=== PATIENT | male | born 1985 | race Caucasian/White ===

== ENCOUNTER 2017-06-03 14:05 | Emergency (ER) | payer BC ==
[2017-06-03 14:20] VITALS: BP 157/79
--- NOTE | 2017-06-03 14:44 | RAD ---
HISTORY: Facial trauma COMPARISONS: None VIEWS: 3, Shah views of the face, bilateral coned down lateral views of the nasal bones FINDINGS: BONE DENSITY: Normal. BONES: There is no displaced fracture. The orbital rims are intact. JOINTS: There is no arthropathy. ALIGNMENT: There is no dislocation. SOFT TISSUES: Unremarkable. OTHER FINDINGS: The nasal septum is deviated to the right. IMPRESSION: NO ACUTE OSSEOUS INJURY. IF SYMPTOMS PERSIST, RECOMMEND REPEAT IMAGING.
--- NOTE | 2017-06-03 14:49 | UC ---
Epistaxis Nasal HPI - HPI Summary HPI Summary: Pt reports that he was walking by the back of his truck where he keeps a tool box with a bungee cord securing it in place, and the bungee spontaneously released and hit him in th nose and forehead. Pt states that it knocked him down but denies LOC, nausea, vomiting or TORRES. Epistaxis resolved prior to arrival to clinic, denies previous nasal fracture. - History of Current Complaint Chief Complaint: UCGeneralIllness Stated Complaint: NOSE INJURY Time Seen by Provider: 06/03/17 14:21 Hx Obtained From: Patient Onset/Duration: Sudden Onset Severity Initially: Moderate Severity Currently: Mild Pain Intensity: 7 Aggravating Factor(s): Nasal Trauma Associated Signs And Symptoms: Positive: Negative - Allergies/Home Medications Allergies/Adverse Reactions: Allergies Allergy/AdvReac Type Severity Reaction Status Date / Time Adhesive Tape Allergy See Comment Verified 10/03/15 17:14 aspirin Allergy Unknown Verified 06/03/17 14:15 Reaction Details bee venom protein (honey bee) Allergy Hives/Diff. Verified 06/03/17 14:15 Breathing/I tching Penicillins Allergy Hives/Diff. Verified 06/03/17 14:15 Breathing/I tching Sulfa (Sulfonamide Allergy Unknown Verified 06/03/17 14:15 Antibiotics) Reaction Details Home Medications: Home Medications Acetaminophen TAB* [Tylenol TAB*] 4 tab PO Q4H PRN 06/03/17 [History Confirmed 06/03/17] cloNIDine TAB* [Catapres 0.1 MG TAB*] 0.1 mg PO DAILY 06/03/17 [History Confirmed 06/03/17] PMH/Surg Hx/FS Hx/Imm Hx Previously Healthy: Yes Other History Of: Negative For: HIV, Hepatitis B, Hepatitis C, Anticoagulant Therapy - Surgical History Surgical History: Yes Surgery Procedure, Year, and Place: right ankle. left elbow. left knee. left hand - Family History Known Family History: Positive: Cardiac Disease, Hypertension, Diabetes - Social History Occupation: Employed Full-time Lives: With Family Alcohol Use: Rare Substance Use Type: None Smoking Status (MU): Current Every Day Smoker Type: Cigarettes Amount Used/How Often: 1ppd Have You Smoked in the Last Year: Yes Review of Systems Constitutional: Negative Skin: Negative Eyes: Negative ENT: Epistaxis Respiratory: Negative Cardiovascular: Negative Gastrointestinal: Negative Genitourinary: Negative Motor: Negative Neurovascular: Negative Musculoskeletal: Negative Neurological: Headache Psychological: Negative Is Patient Immunocompromised?: No All Other Systems Reviewed And Are Negative: Yes Physical Exam Triage Information Reviewed: Yes Appearance: Pain Distress Vital Signs: Initial Vital Signs Temp 97.1 F 06/03/17 14:15 Pulse 73 06/03/17 14:15 Resp 24 06/03/17 14:15 BP 157/79 06/03/17 14:15 Pulse Ox 100 06/03/17 14:15 Vital Signs Reviewed: Yes Eye Exam: Normal ENT Exam: Other ENT: Positive: Other - small abrasion right side of nose, bleeding stopped, scab formation, right nostirl with small blood clot visible, left nostril patent Dental Exam: Normal Neck exam: Normal Respiratory Exam: Normal Cardiovascular Exam: Normal Musculoskeletal Exam: Normal Neurological Exam: Normal Psychological Exam: Normal Skin Exam: Other - abrasion right side of nose, ~ 5mm in diameter Diagnostics - Radiology No standard instances Radiology Interpretation Completed By: Radiologist - IMPRESSION: NO ACUTE OSSEOUS INJURY. IF SYMPTOMS PERSIST, RECOMMEND REPEAT IMAGING. Epistaxis Nasal Course/Dx - Differential Dx/Diagnosis Differential Diagnosis/HQI/PQRI: Sinusitis, Trauma Provider Diagnoses: nasal trauma. abrasion Discharge - Sign-Out/Discharge Documenting (check all that apply): Discharge - Discharge Plan Condition: Stable Disposition: HOME Patient Education Materials: Ice Pack Application (ED), Facial Contusion (ED) Referrals: Chantel José [Primary Care Provider] - If Needed - Billing Disposition and Condition Condition: STABLE Disposition: HOME
== END 2017-06-03 14:57 | disposition home or self-care (01) ==
LOC: UCCORT 14:05
DX: S00.31XA Abrasion of nose, initial encounter (principal); W20.8XXA Other cause of strike by thrown, projected or falling object, initial encounter; Y92.9 Unspecified place or not applicable; F17.210 Nicotine dependence, cigarettes, uncomplicated; Z88.0 Allergy status to penicillin; Z88.2 Allergy status to sulfonamides; Z88.6 Allergy status to analgesic agent
CPT/HCPCS: 70160; 99211; G0463

== ENCOUNTER 2017-10-12 15:41 | Emergency (ER) | payer BC ==
[2017-10-12 15:55] VITALS: BP 119/71
--- NOTE | 2017-10-12 16:06 | UC ---
Respiratory Complaint HPI - HPI Summary HPI Summary: Patient states he has been short of breath, coughing with sputum and feeling fatigued and sweaty for several days after starting with a cold with nasal congestion. Yesterday he felt faint and sat down, but denies LOC. Patient states he usually smokes 3 PPD but has been smoking more due to high stress. History of amphetamine and marihuana use which he stopped in April ever since he started rehab. Patient denies nausea, vomiting, diarrhea. Also states that this morning he took a dose of PCN that belonged to his brother. - History of Current Complaint Chief Complaint: UCRespiratory Stated Complaint: COUGH,CONGESTION,EAR PAIN Time Seen by Provider: 10/12/17 15:58 Hx Obtained From: Patient Onset/Duration: Gradual Onset, Lasting Days Severity Initially: Mild Severity Currently: Mild Pain Intensity: 2 Character: Cough: Productive Aggravating Factors: Nothing Alleviating Factors: Nothing Associated Signs And Symptoms: Positive: Chills, Wheezing, URI, Nasal Congestion - Risk Factors Pulmonary Embolism Risk Factors: Negative Cardiac Risk Factors: Negative Pseudomonas Risk Factors: Negative Tuberculosis Risk Factors: Negative - Allergies/Home Medications Allergies/Adverse Reactions: Allergies Allergy/AdvReac Type Severity Reaction Status Date / Time Adhesive Tape Allergy See Comment Verified 10/12/17 15:48 aspirin Allergy Unknown Verified 10/12/17 15:48 Reaction Details bee venom protein (honey bee) Allergy Hives/Diff. Verified 10/12/17 15:48 Breathing/I tching Sulfa (Sulfonamide Allergy Unknown Verified 10/12/17 15:48 Antibiotics) Reaction Details PMH/Surg Hx/FS Hx/Imm Hx Previously Healthy: Yes Other History Of: Negative For: HIV, Hepatitis B, Hepatitis C, Anticoagulant Therapy - Surgical History Surgical History: Yes Surgery Procedure, Year, and Place: right ankle. left elbow. left knee. left hand - Family History Known Family History: Positive: Cardiac Disease, Hypertension, Diabetes - Social History Alcohol Use: Rare Substance Use Type: None Smoking Status (MU): Current Every Day Smoker Type: Cigarettes Amount Used/How Often: 3 PPD Have You Smoked in the Last Year: Yes - Immunization History Most Recent Tetanus Shot: UTD Review of Systems Constitutional: Negative ENT: Nasal Discharge, Sinus Congestion Respiratory: Shortness Of Breath, Cough All Other Systems Reviewed And Are Negative: Yes Physical Exam Triage Information Reviewed: Yes Appearance: No Pain Distress, Obese Vital Signs: Initial Vital Signs Temp 99 F 10/12/17 15:49 Pulse 91 10/12/17 15:49 Resp 18 10/12/17 15:49 BP 119/71 10/12/17 15:49 Pulse Ox 100 10/12/17 15:49 Vital Signs Reviewed: Yes Eyes: Positive: Conjunctiva Clear ENT: Positive: Hearing grossly normal, Pharynx normal, TMs normal, Uvula midline Neck: Positive: Supple, Nontender, No Lymphadenopathy Respiratory: Positive: Chest non-tender, No respiratory distress, No accessory muscle use, Rhonchi, Wheezing Cardiovascular: Positive: RRR, No Murmur, Pulses Normal, Brisk Capillary Refill Abdomen Description: Positive: Nontender, No Organomegaly, Soft Bowel Sounds: Positive: Present Diagnostic Evaluation - Laboratory O2 Sat by Pulse Oximetry: 100 Respiratory Course/Dx - Course Course Of Treatment: Patient responded to treatment with Duoneb at the , wheezing and ronci resolved with one nebulization, patient to start Combivent MDI QID PRN and amoxil as prescribed. Patient advised to have nasal toileting with normal saline and information was given for smoking cessation. Follow up with primary care to review technique of inhaler use, aerochamber prescribed for first use - Differential Dx/Diagnosis Provider Diagnoses: Acute Bronchitis. Tobacco Use Discharge - Sign-Out/Discharge Documenting (check all that apply): Patient Departure - Discharge Plan Condition: Stable Disposition: HOME Prescriptions: Albuterol/Ipratropium RESP(NF) [Combivent Respimat(NF)] 1 aer IN QID PRN #1 aer PRN Reason: Shortness Of Breath Amoxicillin 875 mg PO BID 7 Days #14 tablet Inhaler, Assist Devices [Aerochamber Plus Flow-Vu] 1 each MC QID PRN #1 spacer PRN Reason: Shortness Of Breath Patient Education Materials: Ipratropium/Albuterol (By breathing), Acute Bronchitis (ED), Amoxicillin (By mouth), How to Stop Smoking (ED) Referrals: Chantel José [Primary Care Provider] - Additional Instructions: please follow up with your primary doctor for review of inhaler use technique and response to antibiotic treatment - Billing Disposition and Condition Condition: STABLE Disposition: Home
[2017-10-12] MEDS ORDERED: Albuterol/Ipratropium NEB.SOL* Albuterol 2.5 MG/Ipratropium 0.5 MG 3 ML INH ONE (16:15)
--- NOTE | 2017-10-12 16:40 | RAD ---
INDICATION: Cough and fever COMPARISON: April 09, 2010 TECHNIQUE: PA and lateral dual-energy views were obtained. FINDINGS: Bones/Soft Tissues: There are no acute bony findings. Cardiomediastinal: The cardiomediastinal silhouette is normal. Lungs: There are no infiltrates. Pleura: There are no pleural effusions. Other: None IMPRESSION: NO ACTIVE DISEASE.
== END 2017-10-12 17:04 | disposition home or self-care (01) ==
LOC: UCCORT 15:41
DX: J40 Bronchitis, not specified as acute or chronic (principal); F17.210 Nicotine dependence, cigarettes, uncomplicated; Z88.1 Allergy status to other antibiotic agents
CPT/HCPCS: 71046; 93005; 99212; A9270-GY; G0463